=== PATIENT | female | born 1985 | race African-American/Black ===

== ENCOUNTER 2019-12-18 16:10 | Emergency (ER) | payer OTHER ==
[~2019-12-18] VITALS: Ht 160 cm; Wt 65.6 kg
[2019-12-18 16:48] VITALS: BP 132/60
[2019-12-18] MEDS ORDERED: IBUPROFEN 200 MG TABLET. PO ONE (17:00)
[2019-12-18] MEDS ORDERED: OSEL75CA PO (17:15)
[2019-12-18] MEDS ORDERED: IBUP-1007 PO (17:15)
--- NOTE | 2019-12-18 17:15 | PHYS DOC ---
Past Medical History Past Medical History: No Pertinent History Past Surgical History: No Surgical History Smoking Status: Never Smoker Alcohol Use: None Adult General Chief Complaint Chief Complaint: FEVER HPI HPI Patient is a 34 year old AA who presents to the emergency department with complaints of a fever that began today, body aches, fatigue, chest discomfort with breathing, dry cough, headache, nausea, and ear pain since yesterday evening. Patient states a recent coworker of hers had a similar illness. She denies any shortness of breath, wheezing, dizziness,, palpitations, vomiting, diarrhea, abdominal pain, or sore throat. Patient states she did not get annual influenza shot this past year. She currently rates her discomfort at the pain scale, she states she took ibuprofen 400 mg earlier this morning. She denies any alleviating factors. Review of Systems Review of Systems All other systems were reviewed and found to be within normal limits, except as documented in this note. Current Medications Current Medications Current Medications Medications (Trade) Dose Ordered Sig/Zuly Start Time Stop Time Status Last Admin Dose Admin Ibuprofen (Motrin) 600 mg 1X ONCE 12/18/19 17:00 12/18/19 17:03 DC Allergies Allergies Allergies Coded Allergies Type Severity Reaction Last Updated Verified No Known Drug Allergies 12/18/19 No Physical Exam Physical Exam Constitutional: Well developed, well nourished, no acute distress, ill appearance HENT: Normocephalic, atraumatic, bilateral external ears normal, bilateral TMs normal, posterior pharynx normal oropharynx moist, nose congested with erythema and edema of the nasal turbinates bilaterally Eyes: PERRLA, conjunctiva injected bilaterally, no discharge. [] Neck: Normal range of motion, no stridor. [] Cardiovascular:Heart rate regular rhythm, no murmur [] Lungs & Thorax: Bilateral breath sounds clear to auscultation, Respirations even and unlabored, no retractions, no respiratory distress Skin: Warm, dry, no erythema, no rash. [] Back: No tenderness Extremities: No cyanosis, ROM intact Neurologic: Alert and oriented X 3, no focal deficits noted. [] Psychologic: Affect normal, judgement normal, mood normal. Current Patient Data Vital Signs Vital Signs Date Time Temp Pulse Resp B/P (MAP) Pulse Ox O2 Delivery O2 Flow Rate FiO2 12/18/19 16:48 99.4 91 20 132/60 (84) 100 Room Air 99.4 EKG EKG [] Radiology/Procedures Radiology/Procedures [] Course & Med Decision Making Course & Med Decision Making Pertinent Labs and Imaging studies reviewed. (See chart for details) [] Walter Disclaimer Walter Disclaimer This electronic medical record was generated, in whole or in part, using a voice recognition dictation system. Departure Departure Impression: Primary Impression: Flu-like symptoms Disposition: HOME, SELF-CARE Condition: STABLE Referrals: NO PCP (PCP) Patient Instructions: Influenza, Adult, [id number] Additional Instructions: Fill the prescription and take as directed. Alternate Tylenol and ibuprofen as needed for fever. Increase clear fluids and rest. Diet as tolerated. Recommend use of [id number] flu medications as needed for relief of your symptoms. Follow up with your primary care doctor if symptoms persist, return to the ER symptoms worsen. Scripts Ibuprofen (IBUPROFEN) 600 Mg Tablet 600 MG PO PRN Q6HRS PRN for INFLAMMATION for 8 Days, #30 TAB 0 Refills Prov: YOLANDA [employer]TON [employer] 12/18/19 Oseltamivir Phosphate (TAMIFLU) 75 Mg Capsule 1 CAP PO BID for 5 Days, #10 CAP 0 Refills Prov: YOLANDA [employer]TON [employer] 12/18/19 YOLANDA F[employer]TON [employer] Dec 18, 2019 17:15
== END 2019-12-18 17:25 | disposition home or self-care (01) ==
LOC: ER 16:10
DX: R50.9 Fever, unspecified (principal); M79.10 Myalgia, unspecified site; R07.1 Chest pain on breathing; R53.83 Other fatigue; R51 Headache; R05 Cough; R11.0 Nausea; H92.09 Otalgia, unspecified ear
CPT/HCPCS: 99283